=== PATIENT | female | born 1980 | race Hispanic/Latino ===

== ENCOUNTER 2021-11-29 16:35 | Observation (INO) | payer BC, OTHER ==
--- OUTSIDE RECORDS SUMMARY | 2021-11-29 16:41 | XMS REPORT | Continuity of Care Document ---
:1980 Author Organization [facility] t Address [address] [place] [address] Care Team Providers Name Role Phone Felix Dodd [facility] Primary Care Physic [place] Ty CARDONA Attending Clinician Unavailable Ty BLACK Attending Clinician Unavailable Ty BLACK Attending Clinician Unavailable Ty Cardona MD Attending Clinician Davida INMAN R Attending Clinician Doctor Unassigned, Name Attending Clinician Unavailable Ty CARDONA Admitting Clinician Unavailable Ty Cardona MD Admitting Clinician Payers Payer Name Policy Type Policy Number Effective Date Expiration Date S scot [facility] [id number] 2020 00:00:00 Problems Condition Condition Condition Status Onset Resolution Last Treating Co mments Source Name Details Category Date Date Treatment Clinician Date Morbid Morbid Disease Active Univers obesity obesity 5-11 [place] of with [place] index mass index 00 Me dical of of Branch 40.0-49.9 40.0-49.9 NSTEMI NSTEMI Disease Active Univers (non-ST (non-ST 5-11 ity of elevated elevated 00:00: [place] myocardial myocardial 00 Me dical infarction infarction Br anch ) ) Cough Cough Disease Active Univers 1-06 ity of 00:00: [place] 00 Medical Branch Nasal Nasal Disease Active Univers congestion congestion 07-05 it y of 00:00: [place] 00 Medical Branch Prediabete Prediabete Disease Active 2016-06 U nivers s s 07-01 ity of 00:00: [place] 00 Medical Branch Depression Depression Disease Active U nivers ity of [facility] Hypertensi Hypertensi Disease Active U nivers on on ity of [facility] Asthma Asthma Disease Active Univers ity of [facility] Hyperlipid Hyperlipid Disease Active U nivers emia emia ity of [facility] Allergies, Adverse Reactions, Alerts Allergy Allergy Status Severity Reaction(s) Onset Inactive Treating Comm ents Source Name Type Date Date Clinician Latex Propensi Active Rash 2016-06 Univers ty to 16 ity of adverse 00:00: [place] reaction 00 Medical s Branch LATEX DRUG Active Rash 2016-06 Univers INGREDI 16 ity of 00:00: [place] 00 Medical Branch SULFA Drug Active N/V Univers (SULFONA Class 2-26 ity of MIDE 00:00: [place] ANTIBIOT 00 Medical ICS) Branch Sulfa Propensi Active Nausea Univers (Sulfona ty to and/or 2-26 ity of mide adverse Vomiting 00:00: [place] Antibiot reaction 00 Medica l ics) s Branch Social History Social Habit Start Date Stop Date Quantity Comments Source History SDOH University o f Alcohol Frequency [place] [facility] History [facility] University o f Alcohol Std [place] Medical Drinks Branch History [facility] University o f Alcohol Binge [place] Medic al Branch Exposure to 2021-10-28 2021-11-07 Not sure University of SARS-CoV-2 00:00:00 12:11:00 [facility] (event) Branch Alcohol intake 2021-11-07 2021-11-07 Current drinker Unive rsity of 00:00:00 00:00:00 of alcohol [facility] (finding) Branch Alcohol Comment 2021-11-07 2021-11-07 2 shots of Universit y of 00:00:00 00:00:00 liquor 2x/week [facility] lillie [place] Tobacco use and 2015-08-25 2015-08-25 Never used Universit y of exposure 00:00:00 00:00:00 [facility] Sex [birth year] At [birth year] Universit y of 00:00:00 00:00:00 [facility] Smoking Status Start Date Stop Date Source Never smoker University [facility] Medications Ordered Filled Start Stop Current Ordering Indication Dosage Frequency Signature Comments Components Source Medication Medication Date Date Medication? Clinician (SIG) Name Name aspirin 0 Yes 81mg 81 mg, Univers chewable 5-13 Oral, ity of tablet 81 14:00: DAILY, [place] mg 00 First dose Medical on [facility] Branch 11/09/21 at 0900, Until Discontinu ed, Routine atorvastati Yes 20mg 20 mg, Univ ers n (LIPITOR) 5-13 Oral, QHS, it y of tablet 20 02:00: [place] mg 00 (after Medical last Branch modificati on) on [facility] 11/08/21 at 2100, Until Discontinu ed, Routine lisinopriL Yes 5mg 5 mg, Univer s (PRINIVIL,Z 5-12 Oral, ity of ESTRIL) 14:00: DAILY, [place] tablet 5 mg 00 First dose Me dical on [facility] Branch 11/08/21 at 0900, Until Discontinu ed, Routine FLUoxetine Yes 40mg 40 mg, Unive rs (PROZAC) 5-12 Oral, ity of capsule 40 14:00: DAILY, [place] mg 00 First dose Medical on [facility] Branch 11/08/21 at 0900, Until Discontinu ed, Routine pantoprazol Yes 40mg 40 mg, Univ ers e 5-12 Oral, ity of (PROTONIX) 14:00: DAILY, [place] EC tablet 00 First dose Medi lillie 40 mg on [facility] Branch 11/08/21 at 0900, Until Discontinu ed, Routine sennosides- Yes 1{tbl} 1 tablet, Univers docusate 5-12 Oral, ity of sodium 14:00: DAILY, [place] (SENOKOT-S) 00 First dose Me dical 8.6-50 mg on [facility] Branch per tablet 11/08/21 at 1 tablet 0900, Until Discontinu ed, Routine magnesium 2021- No 4g 4 g, IV Univ ers sulfate in 11-08 Piggyback, it y of water 4 11:15: 14:48 ONCE, 1 [place] gram/50 mL 00 :00 dose, On Medic al (8 %) IV Cony Branch Piggyback 4 11/08/21 at g 0615, Routine nitroglycer Yes .4mg 0.4 mg, Uni vers in 11-08 Sublingual ity of (NITROSTAT) 00:26: , Q5MIN [place] as sublingual 04 PRN, Medical tablet 0.4 Starting Branc h mg on Fri11/07/21 at 1926, Until Discontinu ed, Routine, Chest pain acetaminoph Yes 650mg 650 mg, Un penny en 11-08 Oral, ity of (TYLENOL) 00:22: Q6HPRN, [place] tablet 650 46 Starting Medic al mg on Fri Branch 11/07/21 at 1922, Until Discontinu ed, Routine, Pain (scale 1-3), Temp > 38.5 C CHOLECALCIF 2021- No Take by U nivers ANDRZEJ, 11-07 mouth. ity of VITAMIN D3, 20:20: 00:00 [place] (VITAMIN D3 37 :00 Medical ORAL) Branch CYANOCOBALA 2021- No Take by U nivers MIN, 11-07 mouth. ity of VITAMIN 20:20: 00:00 [place] B-12, 37 :00 Medical (VITAMIN Branch B-12 ORAL) aspirin 2021- No 162mg 162 mg, Unive rs chewable 11-07 Oral, ity of tablet 162 19:30: 18:32 ONCE, 1 [place] mg 00 :00 dose, On Medical Wed Branch 11/07/21 at 1430, Routine HEPARIN 2021- No 4000U 4,000 Univers SODIUM 11-07 Units, IV ity of (PORCINE) 18:30: 18:33 Push, [place] 1,000 00 :00 ONCE, 1 Medical UNIT/ML dose, On Branch BOLUS ACS Wed ORDER SET 11/07/21 at 1330, JEFFERY heparin 2021- No 1000U/h 1,000 Unive rs 25,000 5- 05-12 Units/hr ity of Units/250 18:26: 15:23 (10 [place] mL 41 :17 mL/hr), IV Medical (Premixed Infusion, Branc h Bag) in TITRATE, 0.45 % NS Parameters in Admin. Instr., Starting on Fri11/07/21 at 1326
CA UTION - If LMWH given in ER, AVOID bolus and start next dose/drip 12 hrs after ER dosage.&nb sp; M ust program rate using programmab le infusion pump.&nbsp ; Suki ck with the ordering provider first prior to any administra tion should the patient be on existing/a dditional anticoagul ant therapy. Rang e, Dosing and Testing: &nbs p;[facility], AND [facility] ONLY - aPTT < 35: & nbsp;Bolus 5000 units, increase rate 300 units/hr&n bsp; - aPTT 35-44:&nbs p; Alhaji jovanni 3000 units, increase rate 200 units/hr&n bsp; - aPTT 45-54:&nbs p; In crease rate 100 units/hr&n bsp; - aPTT 55-85:&nbs p; NO CHANGE&nbs p; - aPTT 86-95:&nbs p; De crease rate 100 units/hr&n bsp; - aPTT 96-120:&nb sp; H old 30 minutes, decrease rate 150 units/hr&n bsp; - aPTT > 120: Hold 60 minutes, decrease rate 200 units/hr&n bsp; Check aPTT 6 hours after initiation , then Q6H after every change, aPTT Q12H once therapeuti c levels are reached.&n bsp; &nbs p; __ &n bsp;FOR [facility] ONLY - aPTT < 40: & nbsp;Bolus 5000 units, increase rate 300 units/hr&n bsp; - aPTT 40-49:&nbs p; Alhaji jovanni 3000 units, increase rate 200 units/hr&n bsp; - aPTT 50-59:&nbs p; In crease rate 100 units/hr&n bsp; - aPTT 60-85:&nbs p; NO CHANGE&nbs p; - aPTT 86-95:&nbs p; De crease rate 100 units/hr&n bsp; - aPTT 96-120:&nb sp; H old 30 minutes, decrease rate 150 units/hr&n bsp; - aPTT > 120: Hold 60 minutes, decrease rate 200 units/hr&n bsp; Check aPTT 6 hours after initiation , then Q6H after every change, aPTT Q12H once therapeuti c levels are reached.&n bsp; DO NOT ADJUST INITIAL BOLUS OR INITIAL INFUSION RATE.
FLUoxetine 2021-0 Yes 40mg Take 40 mg U nivers 40 mg 4-13 by mouth ity of capsule 00:00: daily. [address] FLUoxetine 2021-0 Yes 40mg Take 40 mg U nivers 40 mg 4-13 by mouth ity of capsule 00:00: daily. [address] medroxyPROG 2021-0 Yes 150mg 150 mg by [employer] ESTER[employer]Pax 4- Intramuscu ity o f 150 mg/mL 00:00: lar route [place] as syringe 00 as needed. Medica l q3 months Branch medroxyPROG 2-0 Yes 150mg 150 mg by Univers ESTERone 09-28 Intramuscu ity o f 150 mg/mL 00:00: lar route [place] as syringe 00 as needed. Medica l q3 months Branch traMADOL Yes 50mg Take 1 Univers (ULTRAM) 50 8-19 tablet by ity of mg tablet 00:00: mouth [place] 00 every 6 Medical (six) Branch hours as needed for Pain (scale 4-6). traMADOL No 50mg Take 1 Univer s (ULTRAM) 50 8-19 05-11 tablet by it y of mg tablet 00:00: 00:00 mouth [place] 00 :00 every 6 Medical (six) Branch hours as needed for Pain (scale 4-6). dextrometho Yes 10mL Take 10 mL Univers rphan-guaif 1-06 by mouth ity of enesin 00:00: every 4 [place] 15-100 mg/5 00 (four) Medica l mL syrup hours as Branch needed for Cough. dextrometho 2021- No 10mL Take 10 mL Univers rphan-guaif 1-06 05-11 by mouth ity of enesin 00:00: 00:00 every 4 [place] 15-100 mg/5 00 :00 (four) Medica l mL syrup hours as Branch needed for Cough. metoprolol 2016-06 Yes [id number] 25mg Take 0.5 Univers succinate 2-19 tablets by ity of XL 50 mg 24 00:00: mouth [place] hr tablet 00 daily. Medical Branch metoprolol 2016-06 Yes [id number] 25mg Take 0.5 Univers succinate 2-19 tablets by ity of XL 50 mg 24 00:00: mouth [place] hr tablet 00 daily. Medical Branch metoprolol 2016-06 Yes [id number] 25mg Take 0.5 Univers succinate 2-19 tablets by ity of XL 50 mg 24 00:00: mouth [place] hr tablet 00 daily. Medical Branch ciprofloxac 2016-06 Yes 500mg Take 1 Uni vers in HCl 500 1-16 tablet by ity of mg tablet 00:00: mouth 2 [place] 00 (two) Medical times Branch daily. traMADOL 50 2016-06 Yes 50mg Take 1 Univ ers mg tablet 1-16 tablet by ity o f 00:00: mouth [place] 00 every 6 Medical (six) Branch hours as needed for Pain (scale 4-6). ciprofloxac 2016-06- No 500mg Take 1 Un penny in HCl 500 16 05-11 tablet by ity of mg tablet 00:00: 00:00 mouth 2 [place] 00 :00 (two) Medical times Branch daily. traMADOL 50 2016-06- No 50mg Take 1 Uni vers mg tablet 16 05-11 tablet by ity of 00:00: 00:00 mouth [place] 00 :00 every 6 Medical (six) Branch hours as needed for Pain (scale 4-6). CHOLECALCIF 2016-06 Yes Take by Un penny ANDRZEJ, 0-27 mouth. ity of VITAMIN D3, 14:27: [place] (VITAMIN D3 56 Medical ORAL) Branch CYANOCOBALA 2016-06 Yes Take by Un penny MIN, 0-27 mouth. ity of VITAMIN 14:27: [place] B-12, 56 Medical (VITAMIN Branch B-12 ORAL) omeprazole 2016-06 Yes [id number] 40mg Take 1 Univers 40 mg 0-27 capsule by ity of capsule 00:00: mouth 2 [place] 00 (two) Medical times Branch daily. omeprazole 2016-06- No [id number] 40mg Take 1 Univers 40 mg 0-27 05-11 capsule by ity of capsule 00:00: 00:00 mouth 2 [place] 00 :00 (two) Medical times Branch daily. acetaminoph Yes [id number] 07/01 Univers en-codeine 6-18 tab Every ity of 300-30 mg 00:00: 4hrs as [place] tablet 00 needed for Medical pain or Branch cough requiring narcotic acetaminoph 2021- No [id number] 07/01 Univers en-codeine 6-18 05-11 tab Every ity of 300-30 mg 00:00: 00:00 4hrs as [place] tablet 00 :00 needed for Medical pain or Branch cough requiring narcotic ketorolac Yes [id number] 10mg Take 1 Univers 10 mg 6-01 [id number] tablet by ity of tablet 00:00: mouth [place] 00 every 6 Medical (six) Branch hours as needed (pain). ketorolac 2021- No [id number] 10mg Take 1 Univers 10 mg 6-01 05-11 [id number] tablet by ity of tablet 00:00: 00:00 mouth [place] 00 :00 every 6 Medical (six) Branch hours as needed (pain). hydroCHLORO Yes [id number] 25mg Take 1 Univers thiazide 25 5-18 tablet by ity of mg tablet 00:00: mouth [place] 00 needed Medical (once a Branch day for leg swelling.) . fexofenadin Yes [id number] 180mg Take 1 Univers e 180 mg 5-18 tablet by ity of tablet 00:00: mouth [place] 00 daily. Medical Branch fexofenadin Yes [id number] 180mg Take 1 Univers e 180 mg 5-18 tablet by ity of tablet 00:00: mouth [place] 00 daily. Medical Branch fexofenadin Yes [id number] 180mg Take 1 Univers e 180 mg 5-18 tablet by ity of tablet 00:00: mouth [place] 00 daily. Medical Branch hydroCHLORO 2021- No [id number] 25mg Take 1 Univers thiazide 25 5-18 05-11 tablet by it y of mg tablet 00:00: 00:00 mouth as [place] 00 :00 needed Medical (once a Branch day for leg swelling.) . fluticasone Yes [id number] 1{spray Use 1 Univers 50 4-14 } [place] in ity of mcg/actuati 00:00: each [place] on nasal 00 nostril Medical spray daily. Branch albuterol Yes 2{puff} Inhale 2 U nivers 90 4-14 Puffs ity of mcg/actuati 00:00: every 6 [place] on inhaler 00 (six) Medical hours as Branch needed for Wheezing or Shortness of Breath. fluticasone 2021- No [id number] 1{spray Use 1 Univers 50 4-14 05-11 } [place] ity of mcg/actuati 00:00: 00:00 each [place] on nasal 00 :00 nostril Medical spray daily. Branch albuterol 2021- No 2{puff} Inhale 2 Univers 90 4-14 05-11 Puffs ity of mcg/actuati 00:00: 00:00 every 6 [place] inhaler 00 :00 (six) Medical hours as Branch needed for Wheezing or Shortness of Breath. Immunizations Ordered Filled Immunization Date Status Comments [facility] e Immunization Name Name SARS-COV-2 COVID-19 2020-09-23 Completed Unive rsity of PFIZER VACCINE 00:00:00 [facility] SARS-COV-2 COVID-19 2020-09-23 Completed Unive rsity of PFIZER VACCINE 00:00:00 [facility] SARS-COV-2 COVID-19 2020-09-23 Completed Unive rsity of PFIZER VACCINE 00:00:00 [facility] SARS-COV-2 COVID-19 2020-09-02 Completed Unive rsity of PFIZER VACCINE 00:00:00 [facility] SARS-COV-2 COVID-19 2020-09-02 Completed Unive rsity of PFIZER VACCINE 00:00:00 [facility] SARS-COV-2 COVID-19 2020-09-02 Completed Unive rsity of PFIZER VACCINE 00:00:00 [facility] Human Rabies 2018-03-01 Completed University o f Vaccine From 00:00:00 [place] [facility] l Chicken Fibroblast Branch Culture (RABAVERT) Human Rabies 2018-03-01 Completed University o f Vaccine From 00:00:00 [place] [facility]ica l Chicken Fibroblast Branch Culture (RABAVERT) Human Rabies 2018-03-01 Completed University [facility] (RABAVERT) Human Rabies 2018-02-22 Completed University o [facility]roblast [facility] Culture (RABAVERT) Human Rabies 2018-02-22 Completed University o f Vaccine From 00:00:00 [place] Medica l Chicken Fibroblast Branch Culture (RABAVERT) Human Rabies 2018-02-22 Completed University o f Vaccine From 00:00:00 [place] [facility] l Chicken Fibroblast Branch Culture (RABAVERT) Human Rabies 2018-02-18 Completed University o f Vaccine From 00:00:00 [place] Medica l Chicken Fibroblast Branch Culture (RABAVERT) Human Rabies 2018-02-18 Completed University o f Vaccine From 00:00:00 [place] [facility]ica l Chicken Fibroblast Branch Culture (RABAVERT) Human Rabies 2018-02-18 Completed University o f Vaccine From 00:00:00 [place] Medica l Chicken Fibroblast Branch Culture (RABAVERT) Human Rabies 2018-02-15 Completed University o f Vaccine From 00:00:00 [facility] l Chicken Fibroblast Branch Culture (RABAVERT) Td 2018-02-15 Completed University of 00:00:00 [facility] Human Rabies 2018-02-15 Completed University o f Vaccine From 00:00:00 [facility] l Chicken Fibroblast Branch Culture (RABAVERT) Td 2018-02-15 Completed University of 00:00:00 [facility] Human Rabies 2018-02-15 Completed University o f [facility] 00:00[facility] [facility] Chicken Fibroblast Branch Culture (RABAVERT) Td 2018-02-15 Completed University of 00:00:00 [facility] Influenza Virus 2017-04-25 Completed Universit y of Vaccine Quad IM 3+ 00:00:00 [facility] Influenza Virus 2017-04-25 Completed Universit y of Vaccine Quad IM 3+ 00:00:00 [facility] Influenza Virus 2017-04-25 Completed Universit y of Vaccine Quad IM 3+ 00:00:00 [facility] Vital Signs Vital Name Observation Time Observation Value Comments Source Systolic blood 2021-11-08 16:45:00 135 mm[Hg] Univer sity of pressure [facility] Diastolic blood 2021-11-08 16:45:00 79 mm[Hg] [facility] Heart rate 2021-11-08 16:45:00 72 /min [facility] Body temperature 2021-11-08 16:45:00 36.67 Nia [facility] Respiratory rate 2021-11-08 16:45:00 18 /min [facility] Oxygen saturation in 2021-11-08 16:45:00 95 /min [facility] Arterial blood by [facility] Pulse oximetry Branch Body weight 2021-11-08 09:55:00 133.04 kg [facility] BMI 2021-11-08 09:55:00 48.81 kg/m2 [facility] Body height 2021-11-07 17:13:00 165.1 cm [facility] Procedures Procedure Date / Time Performing Clinician Source Performed US LOWER EXTREMITY VEIN 2021-11-08 13:53:32 Kj Orellana [facility] BILATERAL (ONLY FOR RULE OUT DVT) URINE DRUG (IMMUNOASSAY) 2021-11-08 09:43:00 Kj Orellana [facility] n[facility] SCREEN URINALYSIS 2021-11-08 09:43:00 Esteban [facility] MAGNESIUM 2021-11-08 09:39:00 Bebo [facility] TROPONIN I 2021-11-08 09:39:00 Esteban [facility] BASIC METABOLIC PANEL 2021-11-08 09:39:00 [facility] (NA, K, CL, CO2, Medical Branch GLUCOSE, BUN, CREATININE, CA) LIPID PANEL 2021-11-08 09:39:00 Esteban [facility] ([id number])(TOTAL Medical Branch CHOLESTEROL, TRIGLYCERIDES, HDL) ACTIVATED PARTIAL 2021-11-08 09:39:00 Esteban [facility] MAGNESIUM 2021-11-08 02:11:00 Esteban [facility] TROPONIN I 2021-11-08 02:11:00 Esteban [facility] ACTIVATED PARTIAL 2021-11-08 02:11:00 Esteban [facility] COVID-19 (ID NOW RAPID 2021-11-07 18:28:00 Onelia Higuera [facility] TESTING) Medical Branch THYROID STIMULATING 2021-11-07 18:20:00 Kj Orellana [facility] HORMONE Medical Branch COMP. METABOLIC PANEL 2021-11-07 18:20:00 Ion Burks [facility] ([id number]) Medical Branch XR CHEST 1 VW 2021-11-07 18:13:00 Onelia Higuera [facility] CBC WITH DIFF 2021-11-07 17:50:00 Singer [facility] GLYCOSYLATED HEMOGLOBIN 2021-11-07 17:50:00 Esteban [facility] (A1C) Medical Branch LIPASE 2021-11-07 17:30:00 Singer [facility] TROPONIN I 2021-11-07 17:30:00 Singer [facility] PROTHROMBIN TIME / INR 2021-11-07 17:30:00 Ion Burkse [facility] ACTIVATED PARTIAL 2021-11-07 17:30:00 Ion Burks [facility] HB ECG ROUTINE & RHYTHM 2021-11-07 17:12:16 Ion Burks [facility] NOTICE OF PRIVACY 2021-11-07 17:06:35 Doctor Unassigned, No Univ [facility] PRACTICES Name [facility] CONSENT/REFUSAL FOR 2021-11-07 17:06:21 [facility]igned, [facility] HOSPITAL ADMISSION 2021-11-07 05:01:00 [facility], [facility] Start End Encounter Admission Attending Care Care Encounter Source Date/Time Date/Time Type Type Clinicians Facility Department ID 2021-12-17 2021-12-17 Outpatient R PEDRO CARDONA [facility] [id number] Univers 10:00:00 10:00:[id number] [facility] 2021-12-17 2021-12-17 Outpatient R PEDRO CARDONA [facility] [id number] Univers 10:00:00 10:00:[address] [facility] 2021-11-28 2021-11-28 Outpatient R MARLENY BLACK [facility] [id number] Univers 09:40:00 09:40:[address] [facility] [address] [facility] 2021-11-28 2021-11-28 Outpatient R MARLENY BLACK [facility] [id number] Univers 09:40:00 09:40:[address] [facility] 2021-11-19 2021-11-19 Telephone Pedro Cardona [facility] [id number] Univers 00:00:00 00:00:00 Ty ANTONY [id number] i ty jean pierre [facility] [id number] Dio ruiz PROFESSIO [id number] [address] 2021-11-07 2021-11-08 Inpatient X PEDRO CARDONA [facility] [id number] Univers 12:07:00 14:38:00 ity [facility] 2021-11-07 2021-11-08 Hospital Onelia Higuera [id number] [facility] 12:07:00 14:38:00 Encounter CardonaPedro [id number] [facility] [id number] Ry as [id number] [facility] [address] [place] 2021-11-07 2021-11-07 Orders Doctor SOSA [id number] Univers 00:00:00 00:00:00 Only Unassigned, LUCINA [id number] ity of [facility] [id number] Ry as [id number] [facility] 00[address] [place] 2020-09-23 2020-09-23 Outpatient [facility] [id number] Univers 11:25:00 11:25:[address] [facility] 2020-09-02 2020-09-02 Outpatient [facility] [id number] Univers 11:15:00 11:15:[address] [facility] Results Test Description Test Time Test Comments Results Result Comments Source Troponin I 2021-11-08 10:58:11 Test Item Value Reference Range Interpretation Comme nts TROPONIN I (test code = 0.005 ng/mL See_Comment [Au tomated message] The [id number]) system which ge nerated this result tra nsmitted reference range : <=0.034. The reference r yue was not used to int erpret this result as normal/abnormal . PRAVIN (test code = PRAVIN) Reference (Normal) Range (defined by the 99th percentile reference limit): <= 0.034 ng/mL Note: Cardiac troponin begins to rise 3-4 hours after the onset of ischemia. Repeat in 4-6 hours if the sample was drawn within 3-4 hours of the onset of the symptom and found normal. Diagnosis of myocardial injury is made with acute changes in cTn concentrations with at least one serial sample above the 99th percentile upper reference limit (URL), taken together with the patient's clinical presentation. Biotin has been reported to cause a negative bias, interpret results relative to patient's use of biotin. Lab Interpretation Normal (test code = 46826-8) [id number])(TOTAL CHOLESTEROL, TRIGLYCERIDES, HDL)2021-11-08 10:44:49 Test Item Value Reference Range Interpretation Comments CHOL (test code = 181 mg/dL 120-200 [id number]) HDL (test code = 35 mg/dL >50 L [id number]) HDLC RATIO (test code = See_Comment H [Au tomated message] [id number]) The system [employer] generated this result transmit yudelka reference range : <=4.5. The refe rence range was not u sed to interpret th is result as normal/abnormal . TRIG (test code = 143 mg/dL 30-170 [id number]) LDL CHOL (test code = 117 mg/dL See_Comment [Auto mated message] 33397-3) The system [employer] generated this result transmit yudelka reference range : <=160. The refe rence range was not u sed to interpret th is result as normal/abnormal . VLDL (test code = 29 mg/dL 5-60 [id number]) Lab Interpretation (test Abnormal code = 10089-3) [facility] HOSPITAL METABOLIC PANEL (NA, K, CL, CO2, GLUCOSE, BUN, CREATININE, CA)2021-11-08 10:44:49 Test Item Value Reference Range Interpretation Comments NA (test code = 139 mmol/L 135-145 9973745133) K (test code = 4.0 mmol/L 3.5-5.0 8635777979) CL (test code = 108 mmol/L 98-108 4438540294) CO2 TOTAL (test code 25 mmol/L 23-31 = 3515978450) AGAP (test code = 2-16 2770549871) BUN (test code = 11 mg/dL 7-23 6795773041) GLUCOSE (test code = 99 mg/dL 70-110 2859490469) CREATININE (test code 0.58 mg/dL 0.50-1.04 = 0318849198) CALCIUM (test code = 8.7 mg/dL 8.6-10.6 5314472140) eGFR (test code = mL/min/1.73m2 2072446142) PRAVIN (test code = PRAVIN) Association of Glomerular Filtration Rate (GFR) and Staging of Kidney Disease* + + +- +| GFR (mL/min/1.73 m2) ?| With Kidney Damage ?| ?Without Kidney Damage+ ------+ ----+ ------+| ?>90 ?| ?Stage one ?| ? Normal ?+ -+ + -+| ?60-89 ?| ?Stage two ?| ? Decreased GFR ? + + +- +| ?30-59 ?| ?Stage three ?| ? Stage three ? + + +- +| ?15-29 ?| ?Stage four ? | ? Stage four ?+ -+ + -+| ?<15 (or dialysis) ? ?| ?Stage five ? | ? Stage five ?+ -+ + -+ *Each stage assumes the associated GFR level has been in effect for at least three months. ?Stages 1 to 5, with or without kidney disease, indicate chronic kidney disease. Notes: Determination of stages one and two (with eGFR >59mL/min/1.73 m2) requires estimation of kidney damage for at least three months as defined by structural or functional abnormalities of the kidney, manifested by either:Pathological abnormalities or Markers of kidney damage (including abnormalities in the composition of the blood or urine or abnormalities in imaging tests). [facility]2022-[facility]-12 10:44:49 Test Item Value Reference Range Interpretation Comments MAGNESIUM (test code = 5447656052) 2.0 mg/dL 1.7-2.4 Lab Interpretation (test code = Normal 18191-6) [facility] FallsACTIV[facility] PARTIAL THRMPLAS [id number] 10:16:29 Test Item Value Reference Range Interpretation Comments APTT Patient (test code See_Comment H [Au tomated message] = 3173-2) The system [employer] generated this result transmitted ref erence range: 26 - 36 Seconds. The reference range was not used to int erpret this result as normal/abnormal . Lab Interpretation (test Abnormal code = 63967-2) [facility] FallsTroponin [id number] 03:13:29 Test Item Value Reference Interpretation Comments Range TROPONIN I (test 0.004 ng/mL See_Comment [Automated code = 7028636099) message] The system which generated this result transmitted reference range : <=0.034. The reference range was not used to interpret this result as normal/abnormal . PRAVIN (test code = Reference (Normal) PRAVIN) Range (defined by the 99th percentile reference limit): <= 0.034 ng/mL Note: Cardiac troponin begins to rise 3-4 hours after the onset of ischemia. Repeat in 4-6 hours if the sample was drawn within 3-4 hours of the onset of the symptom and found normal. Diagnosis of myocardial injury is made with acute changes in cTn concentrations with at least one serial sample above the 99th percentile upper reference limit (URL), taken together with the patient's clinical presentation. Biotin has been reported to cause a negative bias, interpret results relative to patient's use of biotin. Lab Interpretation Normal (test code = 27952-5) [facility] FallsMagnesium [id number] 02:58:05 Test Item Value Reference Range Interpretation Comments MAGNESIUM (test code = 9266433129) 1.8 mg/dL 1.7-2.4 Lab Interpretation (test code = Normal 52771-1) [facility]ACT[facility] THRMPLAS [id number] 02:34:40 Test Item Value Reference Range Interpretation Comments APTT Patient (test code See_Comment H [Au tomated message] = 3173-2) The system [employer] generated this result transmitted ref erence range: 26 - 36 Seconds. The reference range was not used to int erpret this result as normal/abnormal . Lab Interpretation (test Abnormal code = 54301-3) [facility] FallsTHYROID STIMULATING [id number] 01:52:18 Test Item Value Reference Range Interpretation Comments TSH (test code = See_Comment Biotin has been 9382056221) reported to cau se a negative bias, interpret resul ts relative to pat ient's use of biotin. [Automated mess age] The system [employer] generated this result transmitted ref erence range: 0.45 - 4 .70 mIU/L. The refe rence range was not u sed to interpret this result as normal/abnor mal. Lab Interpretation (test Normal code = 46918-3) [facility] FallsGLYCOSYLATED HEMOGLOBIN (A1C)2021-11-08 01:21:43 Test Item Value Reference Range Interpretation Comments HGB A1C (test code = 5.6 % 4.0-5.7 4548-4) PRAVIN (test code = PRAVIN) Reference RangesNormal: <5.7%Prediabetes: 5.7 - 6.4%Diabetes: > 6.5% Lab Interpretation (test Normal code = 42087-7) [facility]. METABOLIC PANEL (36814)2021-11-07 18:48:32 Test Item Value Reference Range Interpretation Comments NA (test code = 140 mmol/L 135-145 2773306723) K (test code = 4.1 mmol/L 3.5-5.0 4627997464) CL (test code = 102 mmol/L 98-108 3502213362) CO2 TOTAL (test code = 28 mmol/L 23-31 3592466579) AGAP (test code = 2-16 7352930597) BUN (test code = 14 mg/dL 7-23 5016213069) GLUCOSE (test code = 132 mg/dL 70-110 H 3377370923) CREATININE (test code = 0.78 mg/dL 0.50-1.04 6687134814) TOTAL BILI (test code = 0.5 mg/dL 0.1-1.2 1307003322) CALCIUM (test code = 9.2 mg/dL 8.6-10.6 2338947969) T PROTEIN (test code = 7.3 g/dL 6.3-8.2 3563613137) ALBUMIN (test code = 4.1 g/dL 3.5-5.0 5755616506) ALK PHOS (test code = 70 U/L 34-122 6747423103) ALTv (test code = 11 U/L 5-35 1742-6) AST(SGOT) (test code = 20 U/L 13-40 3867067801) eGFR (test code = mL/min/1.73m2 9020320876) PRAVIN (test code = PRAVIN) Association of Glomerular Filtration Rate (GFR) and Staging of Kidney Disease* + --+ --+ ------+| GFR (mL/min/1.73 m2) ?| With Kidney Damage ?| ?Without Kidney Damage+ --------+ --------+ +| ?>90 ?| ?Stage one ?| ? Normal ?+ ---+ ---+ -------+| ?60-89 ?| ?Stage two ?| ? Decreased GFR ? + --+ --+ ------+| ?30-59 ?| ?Stage three ?| ? Stage three ? + --+ --+ ------+| ?15-29 ?| ?Stage four ? | ? Stage four ?+ ---+ ---+ -------+| ?<15 (or dialysis) ? ?| ?Stage five ? | ? Stage five ?+ ---+ ---+ -------+ *Each stage assumes the associated GFR level has been in effect for at least three months. ?Stages 1 to 5, with or without kidney disease, indicate chronic kidney disease. Notes: Determination of stages one and two (with eGFR >59mL/min/1.73 m2) requires estimation of kidney damage for at least three months as defined by structural or functional abnormalities of the kidney, manifested by either:Pathological abnormalities or Markers of kidney damage (including abnormalities in the composition of the blood or urine or abnormalities in imaging tests). Lab Interpretation Abnormal (test code = 67106-7) [facility] FallsaPTT2022-05-11 18:14:28 Test Item Value Reference Range Interpretation Comments APTT Patient (test <20 See_Comment L [Automat ed code = 3173-2) message] The system which generated this result transmitted reference range : 23 - 38 Seconds . The reference range was not used to interpr et this result as normal/abnormal . PRAVIN (test code = PRAVIN) The [facility] patient population mean normal value for aPTT is 30 seconds. Lab Interpretation Abnormal (test code = 10014-3) [facility] FallsTROPONIN [id number] 18:11:30 Test Item Value Reference Interpretation Comments Range TROPONIN I (test 0.041 ng/mL See_Comment H [Automated code = 9790198284) message] The system which generated this result transmitted reference range : <=0.034. The reference range was not used to interpret this result as normal/abnormal . PRAVIN (test code = Reference (Normal) PRAVIN) Range (defined by the 99th percentile reference limit): <= 0.034 ng/mL Note: Cardiac troponin begins to rise 3-4 hours after the onset of ischemia. Repeat in 4-6 hours if the sample was drawn within 3-4 hours of the onset of the symptom and found normal. Diagnosis of myocardial injury is made with acute changes in cTn concentrations with at least one serial sample above the 99th percentile upper reference limit (URL), taken together with the patient's clinical presentation. Biotin has been reported to cause a negative bias, interpret results relative to patient's use of biotin. Lab Interpretation Abnormal (test code = 68933-5) [facility] FallsLIPASE, [id number] 17:59:27 Test Item Value Reference Range Interpretation Comments LIPASE (test code = 4923552950) 183 U/L 0-220 Lab Interpretation (test code = Normal 13676-1) [facility] FallsCB WITH [id number] 17:58:27 Test Item Value Reference Range Interpretation Comments WBC (test code = See_Comment [Automated message] 8990-2) The system [employer] generated this result transmitted ref erence range: 4.30 - 1 1.10 10*3/?L. The re ference range was not u sed to interpret this result as normal/abnor mal. RBC (test code = See_Comment [Automated message] 419-8) The system [employer] generated this result transmitted ref erence range: 3.93 - 5 .25 10*6/?L. The re ference range was not u sed to interpret this result as normal/abnor mal. HGB (test code = 13.8 g/dL 11.6-15.0 718-7) HCT (test code = 41.0 % 35.7-45.2 4544-3) MCV (test code = 88.2 fL 80.6-95.5 787-2) MCH (test code = 29.7 pg 25.9-32.8 785-6) MCHC (test code = 33.7 g/dL 31.6-35.1 786-4) RDW-SD (test code 42.0 fL 39.0-49.9 = 57414-9) RDW-CV (test code 13.0 % 12.0-15.5 = 788-0) PLT (test code = See_Comment [Automated message] 297-3) The system [employer] generated this result transmitted ref erence range: 166 - 35 8 10*3/?L. The re ference range was not u sed to interpret this result as normal/abnor mal. MPV (test code = 9.5 fL 9.5-12.9 48532-3) NRBC/100 WBC (test See_Comment [Automat ed message] code = 5510104058) The syste m which generated this result transmitted ref erence range: 0.0 - 10 .0 /100 WBCs. The refer ence range was not u sed to interpret this result as normal/abnor mal. NRBC x10^3 (test <0.01 See_Comment [Automated message] code = 3759716746) The syste m which generated this result transmitted ref erence range: 10*3/?L. The reference range was not used to interpr et this result as normal/abnormal . GRAN MAT (NEUT) % 64.6 % (test code = 770-8) IMM GRAN % (test 0.30 % code = 9059575523) LYMPH % (test code 31.1 % = 736-9) MONO % (test code 3.2 % = 5905-5) EOS % (test code = 0.5 % 713-8) BASO % (test code 0.3 % = 706-2) GRAN MAT 6.71 10*3/uL 1.88-7.09 x10^3(ANC) (test code = 3209986299) IMM GRAN x10^3 0.03 10*3/uL 0.00-0.06 (test code = 8385204907) LYMPH x10^3 (test 3.22 10*3/uL 1.32-3.29 code = 731-0) MONO x10^3 (test 0.33 10*3/uL 0.33-0.92 code = 742-7) EOS x10^3 (test 0.05 10*3/uL 0.03-0.39 code = 711-2) BASO x10^3 (test 0.03 10*3/uL 0.01-0.07 code = 704-7) [facility] FallsPROTHROMBIN TIME / [id number] 17:51:48 Test Item Value Reference Range Interpretation Comments PROTIME PATIENT (test See_Comment [Auto mated message] code = 5964-2) The system [employer] generated this result transmitted ref erence range: 12.0 - 1 4.7 Seconds. The re ference range was not u sed to interpret this result as normal/abnor mal. INR (test code = 6301-6) Nor mal INR <1.1; Warfarin Therap eutic range 2.0 to 3. 0 or 2.5 to 3.5, dep ending upon the indica tions. Lab Interpretation (test Normal code = 80568-7) [facility] REFLEX TO FREE [id number] 10:06:52 Test Item Value Reference Range Interpretation Comments TSH REFLEX TO 1.310 UIU/ML 0.400-4.100 UNLESS OTHERWISE FREE T4 (test INDICATED, ALL TESTING code = 2834) PERFORMED [facility] NICAL PATHOLOGY LABOR [facility] [employer] [address] [place] [address] 4 LABORATORY DIR CLAUDIA: JAVIER MCLEAN M.D. CLIA NUMBER [id number] CAP ACCREDITATION N O. [id number] HEMOGLOBIN [id number] 06:58:03 Test Item Value Reference Range Interpretation Comments HEMOGLOBIN A1c (test code = 51636) 5.6 % 4.2-5.6 LIPID [id number] 06:11:17 Test Item Value Reference Range Interpretation Comments CHOLESTEROL (test 173 MG/DL <200 code = 2210) TRIGLYCERIDES (test 78 MG/DL <150 code = 2232) HDL CHOLESTEROL (test 53 MG/DL >39 code = 2220) CALC LDL CHOL (test 103 MG/DL <100 H NOTE: C ALCULATED LDL code = 2237) IS BASED ON TULIO-DUNBAR METHOD WHICHINCLUDES ADJUSTABLE TRIGLYCERIDE:VL DL CHOLESTEROL RAT IO.THIS FACTOR VARIES B Y MEASURED TRIGLY CERIDE AND NON-HDLCHOL ESTEROL CONCENTRATIONS WITH INCREASED CALCU LATED LDL SEENIN HIGH ER TRIGLYCERIDE OR LOWER NON-HDL SPECIME NS. FOR MOREINFORMATION , SEE CLIENT ANNOUNCE MENT AT [email or web address] RATIO LDL/HDL 1.94 RATIO <3.22 (test code = 2238) COMPREHENSIVE METABOLIC [id number] 06:11:17 Test Item Value Reference Range Interpretation Comments GLUCOSE (test code = 112 MG/DL 70-99 H 2216) BUN (test code = 19 MG/DL -2207) CREATININE (test 0.78 MG/DL 0.60-1.30 code = 2213) eGFR (2020 CKD-EPI) 98 ML/MIN/1.73 >60 (test code = 15033) CALC BUN/CREAT (test 24 RATIO 6-28 code = 2235) SODIUM (test code = 145 MEQ/L 260-317 8898) POTASSIUM (test code 4.7 MEQ/L 3.5-5.4 = 2227) CHLORIDE (test code 104 MEQ/L 95-107 = 2214) CARBON DIOXIDE (test 25 MEQ/L 19-31 code = 2205) CALCIUM (test code = 9.3 MG/DL 8.5-10.5 2208) PROTEIN, TOTAL (test 7.3 G/DL 6.1-8.3 code = 2228) ALBUMIN (test code = 3.7 G/DL 3.5-5.2 2200) CALC GLOBULIN (test 3.6 G/DL 1.9-3.7 code = 2239) CALC A/G RATIO (test 1.0 RATIO 1.0-2.6 code = 2233) BILIRUBIN, TOTAL 0.2 MG/DL See_Comment [Automated message] (test code = 2206) The syste m which generated this result transmit yudelka reference range : <=1.2. The refe rence range was not u sed to interpret th is result as normal/abnormal . ALKALINE PHOSPHATASE 99 U/L 40-112 (test code = 2203) AST (test code = 16 U/L 9-40 2217) ALT (test code = 10 U/L 5-40 2218) CBC W/AUTO DIFF WITH [id number] 05:22:24 Test Item Value Reference Range Interpretation Comments WBC (test code = 13.1 K/UL 3.5-11.0 H 1001) RBC (test code = 4.47 M/UL 3.80-5.40 1002) HEMOGLOBIN (test code 13.2 G/DL 11.5-15.5 = 1003) HEMATOCRIT (test code 39.4 % 34.0-45.0 = 1004) MCV (test code = 88.1 fL 80.0-99.0 1005) MCH (test code = 29.5 PG 25.0-33.0 1006) MCHC (test code = 33.5 G/DL 31.0-36.0 1007) RDW (test code = 13.0 % 11.5-15.0 1038) NEUTROPHILS (test 66.1 % code = 1008) LYMPHOCYTES (test 28.8 % code = 1010) MONOCYTES (test code 3.6 % = 1011) EOSINOPHILS (test 0.5 % code = 1012) BASOPHILS (test code 0.4 % = 1013) IMMATURE GRANULOCYTES 0.6 % (test code = 1036) NUCLEATED RBCS (test 0.0 /100 See_Comment [Autom ated code = 1065) WBC'S message] The sy stem which generated this result transmitted reference range : 0.0. The refere nce range was not u sed to interpret th is result as normal/abnormal . PLATELET COUNT (test 353 K/UL 130-400 code = 1015) ABSOLUTE NEUTROPHILS 8.64 K/UL 1.50-7.50 H (test code = 1066) ABSOLUTE LYMPHOCYTES 3.77 K/UL 1.00-4.00 (test code = 1067) ABSOLUTE MONOCYTES 0.47 K/UL 0.20-1.00 (test code = 1068) ABSOLUTE EOSINOPHILS 0.06 K/UL 0.00-0.50 (test code = 1040) ABSOLUTE BASOPHILS 0.05 K/UL 0.00-0.20 (test code = 1069) ABS IMMATURE 0.08 K/UL 0.00-0.10 GRANULOCYTES (test code = 1020) ABS NUCLEATED RBCS 0.00 K/UL 0.00-0.11 (test code = 36542)"
[2021-11-29 17:20] LABS: Absolute Lymphocytes (CBC) 3.9 K/uL (0.7-4.9); Hematocrit 41.9 % (36.0-45.0); Lymphocytes % 30.5 % (15.3-44.8); MPV 7.5 fL (7.6-11.3); RBC Red Blood Cell Count 4.75 M/uL (3.86-4.86)
[2021-11-29 17:24] LABS: Protime INR 1.08
[2021-11-29 17:40] LABS: ALT/SGPT 14 U/L (12-78); AST/SGOT 11 U/L (15-37); Albumin 3.4 g/dL (3.4-5.0); Alkaline Phosphatase 83 U/L (45-117); BUN Blood Urea Nitrogen 14 mg/dL (7-18); Bicarbonate 27 mmol/L (21-32); Bilirubin Total 0.2 mg/dL (0.2-1.0); Glomerular Filtration Rate 113 ml/min (=/>90); Glucose Level 87 mg/dL (74-106); Potassium 3.6 mmol/L (3.5-5.1); Protein, Total 7.9 g/dL (6.4-8.2); Sodium Level 139 mmol/L (136-145); Troponin High Sensitivity 3.9 pg/mL (<58.9)
[2021-11-29 17:41] LABS: NT PRO-BNP 33 pg/mL (<125)
[2021-11-29 17:43] LABS: Bilirubin Direct < 0.1 mg/dL (0-0.2)
--- NOTE | 2021-11-29 17:45 | RAD REPORT ---
EXAM DESCRIPTION: Michele Single View11/29/2021 5:39 pm CLINICAL HISTORY: Chest pain COMPARISON: 2013 FINDINGS: Calcified granuloma right lung. The lungs appear clear of acute infiltrate. The heart is normal size IMPRESSION: No acute abnormalities displayed
--- NOTE | 2021-11-29 19:11 | RAD REPORT ---
EXAM DESCRIPTION: CT - Chest For Pe Angio - 11/29/2021 6:59 pm CLINICAL HISTORY: Chest pain COMPARISON: None. TECHNIQUE: Dynamically enhanced axial 3 mm thick images of the chest were obtained during administra tion of <100> mL Isovue 370 IV contrast. Coronal and oblique reconstruction images were generated and reviewed. Exam utilizes a protocol for optimal evaluation of pulmonary arterial tree. Maximum intensity projections 3D imaging was utilized All CT scans are performed using dose optimization technique as appropriate and may include automated exposure control or mA/KV adjustment according to patient size. FINDINGS: A pulmonary embolus is not seen. A thoracic aortic aneurysm is not noted. A pleural effusion is not seen. A pericardial effusion is not seen. A lung consolidation is not present. IMPRESSION: Negative for a pulmonary embolism.
[2021-11-29] MEDS ORDERED: ASPIRIN 81 MG CHEWABLE TABLET ONE (20:23)
--- NOTE | 2021-11-29 20:33 | ER ---
Nurse's Notes [facility] Name: Ban Barrera Age: 41 yrs Sex: Female : 1980 Arrival Date: 11/29/2021 Time: 16:37 Bed 2 Private MD: Jason Jordan Diagnosis: Chest pain, unspecified Presentation: 11/29 16:42 Chief complaint: Patient states: i started having some chest pain a few hours ago and tw2 my left arm is achy. it happened last week and i went to [facility]. and my troponin was elevated and they sent me to [facility] and had to leave [place] to see my daughter graduate. i feel like its hard to get a deep breath. i have seen Dr. Jordan and i have some testing scheduled with him just havent done it yet. Coronavirus screen: At this time, the client does not indicate any symptoms associated with coronavirus-19. Ebola Screen: Patient denies travel to an Ebola-affected area in the 21 days before illness onset. Initial Sepsis Screen: Does the patient meet any 2 criteria? No. Patient's initial sepsis screen is negative. Does the patient have a suspected source of infection? No. Patient's initial sepsis screen is negative. Risk Assessment: Do you want to hurt yourself or someone else? Patient reports no desire to harm self or others. Onset of symptoms was November 29, 2021. 16:42 Method Of Arrival: Ambulatory tw2 16:42 Acuity: EVANGELISTA 3 tw2 Triage Assessment: 16:45 General: Appears in no apparent distress. Behavior is calm, cooperative, appropriate tw2 for age. Pain: Complains of pain in chest. Neuro: Level of Consciousness is awake, alert, obeys commands, Oriented to person, place, time, situation. Cardiovascular: Reports chest pain, shortness of breath. 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 Patient uses alcohol, occasionally. Screenin:59 Abuse screen: Denies threats or abuse. Nutritional screening: No deficits noted. tw2 Tuberculosis screening: No symptoms or risk factors identified. Fall Risk None identified. Assessment: 17:00 Pain: Pain radiates to left breast Pain began 3 hours ago. bp 17:00 General: SEE TRIAGE NOTE. bp 17:45 Reassessment: No changes from previously documented assessment. Patient and/or family bp updated on plan of care and expected duration. Pain level reassessed. 19:02 Reassessment: PT RETURNED FROM CT. bp 19:26 General: Appears in no apparent distress. Behavior is calm, cooperative. Neuro: Level kd3 of Consciousness is awake, alert, obeys commands, Oriented to person, place, time, situation. Cardiovascular: Patient's skin is warm and dry. Rhythm is regular. Respiratory: Airway is patent Trachea midline Respiratory effort is even, unlabored, Respiratory pattern is regular. 20:46 General: attempted to call report . as6 21:02 General: attempted to call report . as6 Vital Signs: 16:42 BP 130 / 69; Pulse 79; Resp 17; Temp 97.7(TE); Pulse Ox 100% on R/A; Weight 132.45 kg tw2 (R); Height 5 ft. 5 in. (165.10 cm) (R); Pain 7/10; 17:44 BP 132 / 71; Pulse 69; Resp 17; Pulse Ox 100% ; bp 19:00 BP 116 / 80; Pulse 69; Resp 18; Pulse Ox 100% ; bp 19:28 BP 114 / 88; Pulse 72; Resp 20; Pulse Ox 100% on R/A; kd3 20:45 BP 104 / 86; Pulse 65; Resp 19 S; Pulse Ox 100% on R/A; as6 16:42 Body Mass Index 48.59 (132.45 kg, 165.10 cm) tw2 ED Course: 16:37 Patient arrived in ED. as 16:38 Jason Jordan MD is Private Physician. as 16:45 Triage completed. tw2 16:47 Arm band placed on. tw2 16:47 Placed in gown. Call light in reach. Client placed on continuous cardiac and pulse tw2 oximetry monitoring. NIBP monitoring applied. 16:54 Mariano Sparks PA is PHCP. [facility] 16:54 Bhavesh Irene MD is Attending Physician. m 16:56 EKG done, by ED staff, reviewed by Mariano LEIGH. 3 16:58 Ignacio Hernandez, RN is Primary Nurse. bp 17:00 Patient maintains SpO2 saturation greater than 95% on room air. tw2 17:16 Inserted saline lock: 20 gauge in right antecubital area, using aseptic technique. bp Blood collected. 17:41 XRAY Chest (1 view) In Process Unspecified. EDMS 19:00 CT Chest For PE Angio In Process Unspecified. EDMS 19:30 Primary Nurse role handed off by Ignacio Hernandez, ELIGIO 2 19:50 Nelly Carney, RN is Primary Nurse. kd3 20:32 John Chang MD is Hospitalizing Provider. jmm 20:49 No provider procedures requiring assistance completed. Patient admitted, IV remains in as6 place. Administered Medications: 20:19 Drug: Aspirin 162 mg Route: PO; as6 20:49 Follow up: Response: No adverse reaction as6 Medication: 19:00 VIS not applicable for this client. bp Outcome: 20:33 Decision to Hospitalize by Provider. m 21:20 Admitted to Med/surg accompanied by tech, via wheelchair, room 214, with chart. as6 21:20 Condition: stable 21:20 Instructed on the need for admit. 21:23 Patient left the ED. as6 Signatures: Dispatcher [employer] EDKY Mariano Sparks PA PA jmm Martinez, Amelia as Wise, Tara, RN RN tw2 Denisa Marrero 3 Ignacio Hernandez, RN RN bp Darius Medina mw2 Sage Cook RN RN as6 Nelly Carney, RN RN 3 Corrections: (The following items were deleted from the chart) 17:44 17:00 Pain: Pain radiates to left breast Pain began 3 hours ago. tw2 bp
--- NOTE | 2021-11-29 20:33 | EDPHYS ---
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 Patient uses alcohol, occasionally. Vital Signs: 16:42 BP 130 / 69; Pulse 79; Resp 17; Temp 97.7(TE); Pulse Ox 100% on R/A; Weight 132.45 kg tw2 (R); Height 5 ft. 5 in. (165.10 cm) (R); Pain 7/10; 17:44 BP 132 / 71; Pulse 69; Resp 17; Pulse Ox 100% ; bp 19:00 BP 116 / 80; Pulse 69; Resp 18; Pulse Ox 100% ; bp 19:28 BP 114 / 88; Pulse 72; Resp 20; Pulse Ox 100% on R/A; kd3 20:45 BP 104 / 86; Pulse 65; Resp 19 S; Pulse Ox 100% on R/A; as6 16:42 Body Mass Index 48.59 (132.45 kg, 165.10 cm) tw2 MDM: 16:55 Patient medically screened. sloane 20:02 Data reviewed: vital signs, nurses notes. Counseling: I had a detailed discussion with idania the patient and/or guardian regarding: the historical points, exam findings, and any diagnostic results supporting the discharge/admit diagnosis, the need for outpatient follow up. 11/29 16:56 Order name: Basic Metabolic Panel; Complete Time: 17:48 [facility] 11/29 16:56 Order name: CBC with Diff; Complete Time: 17:33 [facility] 11/29 16:56 Order name: LFT's; Complete Time: 17:48 [facility] 11/29 16:56 Order name: Magnesium; Complete Time: 17:48 [facility] 11/29 16:56 Order name: NT PRO-BNP; Complete Time: 17:48 [facility] 11/29 16:56 Order name: PT-INR; Complete Time: 17:33 [facility] 11/29 16:56 Order name: Troponin HS; Complete Time: 17:48 [facility] 11/29 16:56 Order name: XRAY Chest (1 view); Complete Time: 17:48 [facility] 11/29 16:56 Order name: EKG; Complete Time: 16:57 [facility] 11/29 16:56 Order name: Cardiac monitoring; Complete Time: 17:05 [facility] 11/29 16:56 Order name: EKG - Nurse/Tech; Complete Time: 17:05 [facility] 11/29 16:58 Order name: SARS-COV-2 RT PCR (Document "Date of Onset" if Symptomatic); Complete Time: [facility] 18:57 11/29 17:49 Order name: CT Chest For PE Angio; Complete Time: 19:12 [facility] 11/29 16:56 Order name: IV Saline Lock; Complete Time: 17:06 [facility] 11/29 16:56 Order name: Labs collected and sent; Complete Time: 17:06 [facility] 11/29 16:56 Order name: O2 Per Protocol; Complete Time: 17:06 [facility] 11/29 16:56 Order name: O2 Sat Monitoring; Complete Time: 17:06 [facility] Administered Medications: 20:19 Drug: Aspirin 162 mg Route: PO; as6 20:49 Follow up: Response: No adverse reaction as6 Disposition Summary: 11/29/21 20:33 Hospitalization Ordered Hospitalization Status: Observation [facility] Provider: John Chang Location: Telemetry/MedSurg (observation) [facility] Condition: Stable [facility] Problem: new [facility] Symptoms: are unchanged [facility] Bed/Room Type: Standard [facility] Room Assignment: 214(11/29/21 20:53) eb1 Diagnosis - Chest pain, unspecified [facility] Forms: - Medication Reconciliation Form [facility] - SBAR form [facility] Signatures: Dispatcher [employer] Bhavesh Perez MD MD cha Mickail, Joel, PA PA [facility] Jacquie Macias RN RN tw2 Emma Elliott RN RN eb1 Shi Torres 5 Sage Cook RN RN as6 Juliette Elizondo, HAND WRAPPER OPERATOR HAND WRAPPER OPERATOR 7 Corrections: (The following items were deleted from the chart) 20:35 20:33 [place] [id number] 20:53 20:[address] [place] [address]
[2021-11-29] MEDS ORDERED: ATORVASTATIN 40 MG TAB PO SCH (21:36)
[2021-11-29] MEDS ORDERED: ACETAMINOPHEN 500 MG TAB PO PRN (21:36)
[2021-11-29] MEDS ORDERED: ONDANSETRON 4 MG/2 ML VIAL IV PRN (21:36)
[2021-11-29 22:30] LABS: Urine Appearance CLEAR (Clear); Urine Color YELLOW (Yellow); Urine Glucose NEGATIVE (Negative); Urine Specific Gravity 1.015 (1.005-1.030)
[2021-11-29 22:31] LABS: Urine Bilirubin NEGATIVE (Negative); Urine Blood NEGATIVE (Negative); Urine Microscopic Reflex NO UMIC; Urine Protein NEGATIVE (Negative); Urine Urobilinogen 0.2 mg/dL (0.2-1.0); Urine pH 6.5 (5.0-7.0)
[2021-11-29 22:36] VITALS: BMI 48.6
--- NOTE | 2021-11-29 23:22 | P.HP ---
Certification for Inpatient Patient admitted to: Observation With expected LOS: <2 Midnights Patient will require the following post-hospital care: None Practitioner: I am a practitioner with admitting privileges, knowledge of patient current condition, hospital course, and medical plan of care. Services: Services provided to patient in accordance with Admission requirements found in Title 42 Section 412.3 of the Code of Federal Regulations Patient History Date of Service: 11/29/21 Reason for admission: Chest Pain History of Present Illness: Patient is a 41-year-old female with hypertension who presented to the ED with complaints of substernal chest pain radiating to the left arm. She states that she experienced similar symptoms a few weeks ago and went to [facility]. Her troponin was elevated and she was transferred to [facility] and started on heparin drip. She ended up leaving [facility] the next day to attend her daughter's college graduation. She later saw Dr. Jordan outpatient where they have scheduled an echo and stress test. Today in ED, EKG showed NSR, troponin WNL, CT chest negative for PE, vital signs stable. She received aspirin in the ED. Upon my assessment, patient states that her chest pain has resolved. She states that she has additionally been feeling fatigued. ED provider wishes to admit patient for observation. Allergies latex Allergy (Verified 11/29/21 21:48) Rash Sulfa (Sulfonamide Antibiotics) Allergy (Verified 11/29/21 21:48) Nausea/Vomiting Home medications list reviewed: Yes Home Medications: Aspirin [Aspirin EC 81 MG] 81 mg PO DAILY 11/29/21 Fluoxetine HCl [Prozac] 40 mg PO DAILY 11/29/21 Metoprolol Succinate [Toprol Xl*] 25 mg PO DAILY 11/29/21 - Past Medical/Surgical History Diabetic: No -: HTN -: anxiety -: Depression Past Surgical History: Patient denies surgical history Psychosocial/ Personal History: Patient lives at home. She has 2 children. - Family History Mother -: Heart disease, Lung disease, Diabetes, Kidney disease Father -: Heart disease, Hypertension, Diabetes, Cancer Brother -: Cancer - Social History Smoking Status: Never smoker Alcohol use: Yes CD- Drugs: No Caffeine use: No Place of Residence: Home Review of Systems Cardiovascular: Chest Pain, Light Headedness Physical Examination - Vital Signs Temperature: 98.1 F Blood Pressure: 141/73 Pulse: 71 Respirations: 16 Pulse Ox (%): 98 - Physical Exam General: Alert, In no apparent distress HEENT: Atraumatic, PERRLA, Mucous membr. moist/pink, EOMI, Sclerae nonicteric Neck: Supple, 2+ carotid pulse no bruit, No LAD, Without JVD or thyroid abnormality Respiratory: Clear to auscultation bilaterally, Normal air movement Cardiovascular: No edema, Regular rate/rhythm, Normal S1 S2 Gastrointestinal: Normal bowel sounds, No tenderness Musculoskeletal: No tenderness Integumentary: No rashes Neurological: Normal speech, Normal strength at 5/5 x4 extr, Normal affect - Studies Laboratory Data (last 24 hrs) 11/29/21 17:00: PT 11.9, INR 1.08 11/29/21 17:00: WBC 12.8 H, Hgb 13.6, Hct 41.9, Plt Count 398 11/29/21 17:00: Sodium 139, Potassium 3.6, BUN 14, Creatinine 0.67, Glucose 87, Magnesium 2.0, Total Bilirubin 0.2, AST 11 L, ALT 14, Alkaline Phosphatase 83 Assessment and Plan - Problems (Diagnosis) (1) Chest pain Current Visit: Yes Status: Acute Qualifiers: Chest pain type: unspecified Qualified Code(s): R07.9 - Chest pain, unspecified (2) Hypertension Current Visit: No Status: Chronic Qualifiers: Hypertension type: primary hypertension Qualified Code(s): I10 - Essential (primary) hypertension - Plan -Initial troponin negative. Trend q6hx2 -Cardiology consulted -Echo ordered -Lipid panel and TSH pending -Atorvastatin and aspirin daily -Monitor on telemetry -Lovenox for VTE prophylaxis -Full code Discharge Plan: Home Plan to discharge in: 24 Hours - Advance Directives Does patient have a Living Will: No Does patient have a Durable POA for Healthcare: No - Code Status/Comfort Care Code Status Assessed: Yes (Full) Critical Care: No Time Spent Managing Pts Care (In Minutes): 50
[2021-11-30 04:42] LABS: Thyroid Stimulating Hormone 3.15 uIU/mL (0.360-3.740); Troponin High Sensitivity 5.1 pg/mL (<58.9)
[2021-11-30 06:49] VITALS: O2SAT 96
[2021-11-30 08:27] VITALS: BP 114/67; TEMP 97.6
[2021-11-30] MEDS ORDERED: ASPIRIN EC 81 MG TAB PO SCH (09:00)
[2021-11-30] MEDS ORDERED: ENOXAPARIN 40 MG/0.4 ML SQ SCH (09:00)
--- NOTE | 2021-12-01 14:32 | EKG ---
Test Date: 2021-11-29 Test Time: 16:50:24 Ict Teacher: FAUZIA MEASUREMENT RESULTS: Intervals: Rate: 71 VT: 146 QRSD: 86 QT: 408 QTc: 443 [place]: P: 45 VT: 146 QRS: 22 T: 42 INTERPRETIVE STATEMENTS: Normal sinus rhythm Normal ECG Compared to ECG 05/24/2015 17:30:57 Sinus tachycardia no longer present Electronically Signed On 12-01-21 14:31:52 CDT by Jason Jordan
--- NOTE | 2021-12-03 07:00 | ECHO ---
HEIGHT: 5 ft 5 in WEIGHT: 292 lb 0.036 oz DATE OF STUDY: 11/30/[address]: Debra Dinh 2-DIMENSIONAL: YES M.MODE: YES DOPPLER: YES COLOR FLOW: YES TDS: PORTABLE: YES DEFINITY: BUBBLE STUDY: DIAGNOSIS: CHEST PAIN CARDIAC HISTORY: CATHERIZATION: NO SURGERY: NO PROSTHETIC VALVE: NO PACEMAKER: NO MEASUREMENTS (cm) DIASTOLIC (NORMALS) SYSTOLIC (NORMALS) IVSd 1.1 (0.6-1.2) LA Diam 3.2 (1.9-4.0) LVEF 55-60% LVIDd 4.5 (3.5-5.7) LVIDs 3.5 (2.0-3.5) %FS % LVPWd 1.2 (0.6-1.2) Ao Diam 2.9 (2.0-3.7) 2 DIMENSIONAL ASSESSMENT: RIGHT ATRIUM: NORMAL LEFT ATRIUM: NORMAL RIGHT VENTRICLE: NORMAL LEFT VENTRICLE: NORMAL TRICUSPID VALVE: NORMAL MITRAL VALVE: NORMAL PULMONIC VALVE: NORMAL AORTIC VALVE: NORMAL PERICARDIAL EFFUSION: NONE AORTIC ROOT: NORMAL LEFT VENTRICULAR WALL MOTION: NORMAL DOPPLER/COLOR FLOW: MILD MITRAL REGURGITATION COMMENTS: NORMAL LEFT VENTRICULAR EJECTION FRACTION 55-60%. NORMAL WALL MOTION. MILD MITRAL REGURGITATION. OTHERWISE NORMAL STUDY. TECHNOLOGIST: JOSE JEAN-BAPTISTE
== END 2021-11-30 11:46 | disposition home or self-care (01) ==
LOC: ER 16:35 → ERHOLD 20:09 → 2ND 20:38
PROVIDERS: ADMIT Hospitalist; ATTEND Hospitalist
DX: R07.9 Chest pain, unspecified (principal); I10 Essential (primary) hypertension; R42 Dizziness and giddiness; F41.9 Anxiety disorder, unspecified; F32.A Depression, unspecified; Z20.822 Contact with and (suspected) exposure to COVID-19; Z79.82 Long term (current) use of aspirin; Z79.899 Other long term (current) drug therapy; Z88.2 Allergy status to sulfonamides; Z91.040 Latex allergy status; Z82.49 Family history of ischemic heart disease and other diseases of the circulatory system; Z83.3 Family history of diabetes mellitus; Z80.9 Family history of malignant neoplasm, unspecified; Z84.1 Family history of disorders of kidney and ureter
CPT/HCPCS: 93005; 93306; 85025; 80048; 36415; 83735; 85610; 80061; 80076; 84443; 81003; 84484 ×3; 83880; 71275; 71045; 99285; U0003; Q9967; J1650; G0378 ×3